=== PATIENT | female | born 1990 | race Caucasian/White ===

== ENCOUNTER 2016-10-24 01:52 | Emergency (ER) | payer BC, MEDICAID ==
[2016-10-24] MEDS ORDERED: DEXAMETHASONE SOD PHOSPHATE 10 MG/ML VIAL IM ONE (02:28)
[2016-10-24] MEDS ORDERED: METHYLPREDNISOLONE ACETATE 80 MG/ML VIAL IM ONE (02:28)
[2016-10-24] MEDS ORDERED: METHYLPREDNISOLONE ACETATE 80 MG/ML VIAL ONE (02:31)
[2016-10-24] MEDS ORDERED: DEXAMETHASONE SOD PHOSPHATE 10 MG/ML VIAL ONE (02:31)
--- NOTE | 2016-10-24 02:36 | ERNOTE ---
Lower Extremity HPI - General Lower Extremities Pain: leg: right Time Seen by Provider: 10/24/16 02:17 Source: patient Exam Limitations: no limitations - Immun/Allergies/Home Medications Immunizations: IMMUNIZATION HX Immunizations Up to Date Yes History of Influenza Vaccine Yes Allergies/Adverse Reactions: Allergies Allergy/AdvReac Type Severity Reaction Status Date / Time adhesive tape AdvReac Intermediate Itching Verified 12/22/14 00:32 Home Medications: HOME MEDICATIONS NK [No Home Medication] 10/24/16 [Last Taken Unknown] - History of Present Illness Narrative: Pt believes she received an insect bite 2 days ago and it began to be mildly erythematous. Today the erythema spread in a spotty fashion over her calf. Occurred: yesterday Method of Injury: Reports: other - insect bite / sting Loss of Consciousness: Reports: no loss of consciousness Modifying Factors - (Improves): Reports: cold therapy Other Injuries: Reports: none Review of Systems - Review of Systems Constitutional: Absent: recent illness, fever, chills Respiratory: Absent: shortness of breath Cardiology: Absent: chest pain Skin: Present: See HPI Neurological: Absent: numbness, tingling Hematologic/Lymphatic: Absent: easy bruising, easy bleeding - Patient's Past Medical History Patient History - Medical: No pertinent hx Patient History - Cardiac/Respiratory: No pertinent hx Patient History - Cancer: No Hx of Cancer Patient History - Surgical Procedures: Patient History - Other: None LMP (females 10-50): last week LMP (Calendar): 06/14/14 - Family History Mother Family History - Medical: Hypothyroidism Family History - Cardiac/Respiratory: Hypertension, Hyperlipidemia - Social History Living Situations: spouse Abuse History: No History of abuse Psych History: No pertinent hx Smoking Status: Current every day smoker Have you smoked in the past 12 months: Yes Do you dip or chew tobacco: No Alcohol Use: occasionally Drug Use: none - Immunizations Immunizations Up to Date: Yes History of Influenza Vaccine: Yes Physical Exam - Physical Exam General Appearance: Present: wd/wn, alert, no apparent distress Head Exam: Present: normal inspection, no evidence of injury Respiratory: Present: no respiratory distress, no accessory muscle use Extremity Exam: Present: normal inspection, normal range of motion, no edema - left calf measures 1 cm larger than the right (affected) calf, other - calf is mildly tender near the initial "bite". No cord or induration Neurological Exam: Present: alert, oriented, normal mood/affect Skin Exam: Present: skin rash - patchy erythematous plaques on the right posterior and lateral calf ED Progress - Vital Signs Vital Signs: Vital Signs 10/24/16 01:57 Temperature 36.5 C Pulse Rate 84 Respiratory 16 Rate Blood Pressure 216/116 O2 Sat by Pulse 96 Oximetry - Progress/Reassessment Chief Complaint: Lower Extremity Pain/ Injury Departure Clinical Impression: Insect bite Qualifiers: Encounter type: initial encounter Qualified Code(s): W57.XXXA - Bitten or stung by nonvenomous insect and other nonvenomous arthropods, initial encounter - Departure Disposition: Home self-care Condition: Good Instructions: Insect Bite
[2016-10-24 03:00] VITALS: BP 157/91
== END 2016-10-24 02:40 | disposition home or self-care (01) ==
LOC: ER 01:52
DX: S80.861A Insect bite (nonvenomous), right lower leg, initial encounter (principal); W57.XXXA Bitten or stung by nonvenomous insect and other nonvenomous arthropods, initial encounter; F17.200 Nicotine dependence, unspecified, uncomplicated